=== PATIENT | male | born 1960 ===

== ENCOUNTER 2019-11-05 17:35 | Outpatient (CLI) | payer BC, SELFPAY ==
--- NOTE | ~2019-11-05 | MR_ITS ---
EXAMINATION: MR brain/brain stem wo con DATE: 11/05/2019 18:16 INDICATION: Stroke with bilateral lower limb weakness TECHNIQUE: Magnetic resonance imaging (MRI) of the brain and brainstem was performed without intraven ous contrast. Sequences included sagittal and axial T1-weighted SE, axial diffusion-weighted FS SE, a xial T2*-weighted GRE, axial T2-weighted FLAIR, and axial T2-weighted FSE. Apparent diffusion coeffic ient (ADC) maps were created. COMPARISON: None. FINDINGS: There are no areas of restricted diffusion to suggest acute infarction. No intracranial hemorrhage or abnormal intracranial mass lesion. There are scattered areas of nonspecific increased T2-weighted si gnal intensity in the claudia and cerebral white matter. There are no intraparenchymal signal abnormalit ies seen on the other pulse sequences. The ventricles are symmetric and normal in size. There are no abnormal extra-axial fluid collections. There is a decreased flow void on T2-weighted images in the r ight vertebral artery which could be seen with thrombosis, slow flow or a significant amount of ather osclerotic plaque. Visualized orbits and soft tissues are unremarkable. There are no areas of abnorma l enhancement on the post contrast images. IMPRESSION: 1. Mild scattered nonspecific white matter T2 hyperintensity in the claudia and cerebral white matter li naveen sequela of chronic small vessel ischemic disease. No acute infarct. 2. Decreased flow void at the right vertebral artery which could be seen with thrombosis, slow flow o r a significant amount of atherosclerotic plaque. Reviewed, dictated and finalized at location A. IMPRESSION: 1. Mild scattered nonspecific white matter T2 hyperintensity in the claudia and ce rebral white matter likely sequela of chronic small vessel ischemic disease. No acute infarct. 2. Decreased flow void at the right vertebral artery which could be seen with t hrombosis, slow flow or a significant amount of atherosclerotic plaque.
== END 2019-11-05 17:36 | disposition home or self-care (01) ==
PROVIDERS: PCP Physician Assistant; Visit Provider Psychiatry & Neurology Neurology
DX: I63.9 Cerebral infarction, unspecified (principal); R93.0 Abnormal findings on diagnostic imaging of skull and head, not elsewhere classified
CPT/HCPCS: 70551

== ENCOUNTER 2019-11-26 14:24 | Outpatient (CLI) | payer BC, SELFPAY | END 2019-11-26 14:25 | disposition home or self-care (01) | LOC: ANHAUDIO 14:25 | PROVIDERS: PCP Physician Assistant; Visit Provider Psychiatry & Neurology Neurology | DX: H90.3 Sensorineural hearing loss, bilateral (principal) | CPT/HCPCS: 92557; 92567 ==

== ENCOUNTER 2019-12-06 10:57 | Outpatient (RCR) | payer BC, SELFPAY | END 2019-12-06 23:59 | disposition home or self-care (01) | LOC: ANHAUDIO 10:57 | PROVIDERS: PCP Physician Assistant; Visit Provider Physician Assistant | DX: Z46.1 Encounter for fitting and adjustment of hearing aid (principal) | CPT/HCPCS: V5257 ==

== ENCOUNTER 2019-12-06 14:37 | Outpatient (CLI) | payer BC, SELFPAY ==
--- NOTE | ~2019-12-06 | CT_ITS ---
EXAMINATION: CTA brain carotid DATE: 12/06/2019 15:55 INDICATION: Stroke. TECHNIQUE: Computed tomographic angiography (CTA) of the head was performed without and with 100 mL O mnipaque-350 intravenous contrast. CTA of the neck was performed with intravenous contrast. Automated exposure control and iterative reconstruction technique were employed. The dose-length product was 1 723.83 mGy-cm. Maximum intensity projection and volume rendered 3D-reconstructions were created by e technologist on a separate workstation. COMPARISON: Brain MRI 11/05/2019 FINDINGS: HEAD CTA: There are old infarcts involving inferior right cerebellum and right middle cerebellar pedu ncle. There is no intracranial hemorrhage, acute infarction, or abnormal intracranial mass lesion. Th e ventricles are normal in size. The paranasal sinuses are clear. There is an implant superior to rig ht ocular globe. There is mild mucosal thickening in the paranasal sinuses. The mastoid air cells are normal. 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 There is moderate stenosis of left verte bral artery. There is no significant stenosis of basilar artery or the posterior cerebral arteries. T here is mild stenosis of the intracranial internal carotid arteries. There is a 3 mm saccular aneurys m of supraclinoid right internal carotid artery directed medially. There is no significant stenosis o f the anterior cerebral arteries. There is mild stenosis of the middle cerebral arteries. Anterior co mmunicating artery is normal. The posterior communicating arteries are normal. NECK CTA: There is mild emphysema. There are no pathologically enlarged lymph nodes. Right vertebral artery is small in caliber. There is total occlusion of right vertebral artery superior to C2. There is mild plaque in the proximal internal carotid arteries. There is 0% stenosis of the proximal right internal carotid artery relative to normal distal artery lumen diameter (NASCET criteria). There is 0 % stenosis of the proximal left internal carotid artery relative to normal distal artery lumen diamet er. There is severe spondylosis at C5-C6. IMPRESSION: 1. Old infarcts involving inferior right cerebellum and right middle cerebellar peduncle. 2. 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 3. 0% stenosis of the proximal internal carotid arteries relative to normal distal artery lumen diame ters (NASCET criteria). 4. 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 Reviewed, dictated and finalized at location A. IMPRESSION: 1. Old infarcts involving inferior right cerebellum and right middle cerebellar peduncle. 2. 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 3. 0% stenosis of the proximal internal carotid arteries relative to normal dis sebastián artery lumen diameters (NASCET criteria). 4. 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
[2019-12-06 15:52] LABS: Estimated Glomerular Filt Rate > 60
== END 2019-12-06 14:38 | disposition home or self-care (01) ==
LOC: ANHIMG 14:38
PROVIDERS: PCP Physician Assistant; Visit Provider Psychiatry & Neurology Neurology
DX: I63.9 Cerebral infarction, unspecified (principal)
CPT/HCPCS: 36415; 70496; 70498; Q9967

== ENCOUNTER 2020-01-08 09:30 | Outpatient (RCR) | payer BC, SELFPAY ==
--- NOTE | 2019-10-11 10:19 | PTOPEVAL ---
PHYSICAL THERAPY EVALUATION AND PLAN OF CARE 10-11-2019 The PT evaluation was completed for the diagnosis of TIA. His plan of treatment is scheduled for 2-3 x/week for 4 weeks. Thank you for referring Suhail Goodrich to [facility]. Please review, sign, date and return this plan of care [facility]. I agree with and certify that the following plan of care is medically necessary. Referring Physician Date Attending Provider: Stephen Ghosh PA-C *PT Outpatient Evaluation Start: 10/11/19 08:59 Document 10/11/19 08:59 MARTHA (Rec: 10/11/19 10:19 MARTHA [id number]) Outpatient Past Medical History Past Medical History Source of Past Medical History Patient,Family/Significant Other Neurological History Hx Cerebrovascular Accident (CVA) Yes: this CVA Cardiovascular History Hx Hypertension Yes: meds control Respiratory History Hx Respiratory Disorders No Significant History Gastrointestinal History Hx Gastrointestinal Disorders No Significant History Genitourinary History Hx Genitourinary Disorders No Significant History Musculoskeletal History Hx Other Musculoskeletal Disorders Yes: L Charcot foot, with wound-to see ortho @ [facility]/ brace Endocrine History Hx Diabetes Yes: med control HEENT History 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,deaf R ear-new onset Evaluation Information Problem Diagnosis s/p TIA Onset 08-23-19 Subjective Information pt lived in [place]; was in Query Text:As Reported By Patient/ Rehab, came to live with Family sister Petra September 19; staying with Petra until stronger, then hope to go to [place] to live with daughter or his friend; Previous Treatments Previous Treatments For This Problem in pt hospital and rehab Prior Level of Function Activity Level (Last 3 Months) Occupation prior to CVA delivered parts for [employer] Hand Dominance Left Home Setting Home Type House Environmental Barriers Railing, None,Stairs, 2-4 Living Situation With Relatives Support Available Local Family Support Mobility Assistive Devices (Used Last 3 Wheelchair, Manual Months) Orthotic/Prosthetic Devices Left Lower Extremity Orthosis Bathing Equipment Grab Bars,Tub Seat With Back, Tub Transfer Bench Comments Additional Prior Level of Function bath and dress indep with Comments equipment; use wheel chair for mobility;
--- NOTE | 2019-11-08 11:55 | PTOPEVAL ---
PHYSICAL THERAPY RE-EVALUATION AND UPDATED PLAN OF CARE 11-08-2019 Josh has received 11 PT sessions, from October 10 to today, for the diagnosis of cerebral infarct. He has improved in all areas: ambulation ability and distance, Tinetti balance score, R and L LE strength, ability on stairs, car transfer, floor/mat transfer and increased reported activity level at home. He has been instructed on a home exercise program. He is living with his sister, Petra, but wants to return to independent living as soon as he is safe with his mobility. He is using the wheel chair for distances and in the home using wheeled walker and wheel chair. PT to continue 2-3x/week for 4 weeks, to continue to increase his mobility skills, standing balance and strength. Thank you for referring Suhail Goodrich to [facility]. Please review, sign, date and return this plan of care [facility]. I agree with and certify that the following plan of care is medically necessary. Referring Physician Date Attending Provider: Stephen Ghosh PA-C *PT Outpatient Re-Evaluation Document 11/08/19 11:00 MARTHA (Rec: 11/08/19 11:47 MARTHA [id number]) Evaluation Information Problem Subjective Information Josh reports: doing better, Query Text:As Reported By Patient/ legs are still weak, walking Family more; at home, using wheelchair and wheeled walker- sister walk behind for safety , able to do laundry and light home things, doing self care without assist of sister; still live with sister and she continues to do cooking; to have eye surgery next week; is not driving; plans to go to [place] to live by himself; has not had any falls. Pain Assessment Timing of Pain Assessment Timing of Pain Assessment Assessment Self Report Self Report Pain Level 0 Pain Score Pain Score 0: Self Report Lower Extremity Muscle Strength Testing General Lower Extremity Strength Gross Lower Extremity Strength 3# ankle wt: supine SLR R 29/L 23 reps; side lying hip abduction R 10/L 20 reps; prone hip extension R 20/ L 20 reps -sit<> stand use of B UE; standing: R/L sh flexion 5 reps, able to maintain standing balance; cannot take steps without UE support; Transfer Assessment Bed Transfer Assessment Ambulation Assistive Devices Walker, Wheeled Sit to Stand Bed Transfer Ability Independent Stand to Sit Bed Transfer Ability Independent Ability to Transfer To/From the Bed Independent Cues Needed for Bed Transfer None Bed Transfer Comments use of B UE; Car Trans
--- NOTE | 2019-12-06 11:00 | PTOPEVAL ---
Addendum entered by Lona Clifford, PT 12/06/19 13:29: To continue PT treatments 2x/week for 4 weeks. Original Note: PHYSICAL THERAPY RE-EVALUATION AND UPDATED PLAN OF CARE 12-06-2019 Josh has received 21 PT sessions, from October 10 to today. Compared to the last reevaluation: Josh has improved in all areas: strength of LE's; sit/stand transfer, floor/sit transfer, walking tolerance, Tinetti balance score, stair ability. He continues to use the wheelchair for his mobility, and walking short distances in his home with sister near by. He is motivated and his goal is to go to [place] and live with his friend there, and to be as independent as possible. Thank you for referring Suhail Goodrich to [facility]. Please review, sign, date and return this plan of care [facility]. I agree with and certify that the following plan of care is medically necessary. Referring Physician Date Attending Provider: Stephen Ghosh PA-C Document 12/06/19 10:08 MARTHA (Rec: 12/06/19 11:00 MARTHA [id number]) Therapy Assessment Status Assessment Status Subjective Information Josh reports: is doing more Query Text:As Reported By Patient/ walking at home; due to eye Family surgery, vision is blurry in R eye; has not had any falls; in the house, is using the wheelchair about 90% time in house; is doing home exercises; wants to continue therapy- to be able to walk better and not need help. Pain Assessment Timing of Pain Assessment Timing of Pain Assessment Assessment Self Report Self Report Pain Level 0 Pain Score Pain Score 0: Self Report Lower Extremity Muscle Strength Testing General Lower Extremity Strength Gross Lower Extremity Strength sit/stand 10 reps with L UE use only; standin# ankle wt: R and L with B UE hold: hip flex, abduction and extension and knee flexion, 30 to 40 reps each; Transfer Assessment Floor Transfer Assessment Ambulation Assistive Devices None Orthotic/Prosthetic Devices Left Lower Extremity Orthosis Sit to Floor Transfer Ability Independent Floor to Sit Transfer Ability Independent Cues Needed for Floor Transfer None Floor Transfer Comments use of UE on mat to perform transfer Balance Assessment Tinetti Balance Assessment Sitting Balance Steady, safe Ability to Arise Able, uses arms to help Attempts to Arise Arises on 1st attempt Immediate Standing Balance Steady with support Standing Balance Steady, wide stance Nudged Response Steady Stand
--- NOTE | 2020-01-03 15:21 | PTOPEVAL ---
PHYSICAL THERAPY REEVALUATION AND UPDATED PLAN OF CARE 01-03-2020 Josh has received 28 PT sessions, from October 10 to today, s/p CVA. He remains motivated and works hard during therapy sessions. Compared to the last reevaluation: 6 minute walking test is slightly less distance; Tinetti balance score is the same; he has not had any falls; at home, reports using the wheel chair for ~ 25% of the day, previously was 90% day use; During therapy, he is using the nickie cane for walking, with slower pace of gait. He has one at home, but is not comfortable using it without someone with him. He continues to live with his sister; Josh has increased his in home walking and activity--doing laundry, going out to the back porch and light home tasks. He plans to go to [facility] on Mar 20, to live with his friend. Josh reports frustration with his mobility and is limited due to his R eye issues, which causes him blurry vision and L walking boot for Charcot foot. He sees both eye dr and ortho dr Jan 15. He does not have his hearing aide and he is pleased with it. PT is to continue 2x/week for 4 weeks, to further increase his mobility and dynamic balance. Thank you for referring Suhail Goodrich to [facility]. Please review, sign, date and return this updated plan of care [facility]. I agree with and certify that the following plan of care is medically necessary. Referring Physician Date Attending Provider: Stephen Ghosh PA-C *PT Outpatient Re-Evaluation Document 01/03/20 14:43 MARTHA (Rec: 01/03/20 15:19 MARTHA [id number]) Evaluation Information Problem Subjective Information Josh reports: at home is Query Text:As Reported By Patient/ using the wheelchair for Family mobility 25% day in home- mostly at night and first thing in morning and when in community is using wheelchair; has not had any falls; has a nickie cane at home, but is not comfortable with it to walk alone; no falls; still lving with his sister- she does shopping, driving and meals for him; his R eye is blurry and has appointment 8- [address] and L ankle dr; is doing his home exercises and wants to continue PT to be able to walk more and get stronger; Pain Assessment Timing of Pain Assessment Timing of Pain Assessment Assessment Self Report Self Report Pain Level 0 Pain Score Pain Score 0: Self Report Lower Extremity Range of Motion General Lower Extremity Range of Motion Gross Lower Extremity Range of Motion sit to stand from w/c with 1 Comments UE use/ stand to sit without use of UE's with plop into
--- NOTE | 2020-01-10 10:40 | PCPTNOTE ---
This treatment is being continued on visit number [id number]. Please see documentation on both accounts to view progress. Completed interventions, outcomes, and problems have been marked as Inactive to facilitate the copying of the Care plan routine for recurring accounts.
== END 2020-01-09 23:59 | disposition home or self-care (01) ==
LOC: ANHPT 09:30
PROVIDERS: PCP Physician Assistant; Visit Provider Physician Assistant
DX: Z86.73 Personal history of transient ischemic attack (TIA), and cerebral infarction without residual deficits (principal)
CPT/HCPCS: 97110; 97116; 97162

== ENCOUNTER 2020-01-15 13:30 | Outpatient (RCR) | payer BC, SELFPAY ==
--- NOTE | 2020-01-10 10:42 | PCPTNOTE ---
This treatment is being continued from [id number]. Please see documentation on both accounts to view progress.
--- NOTE | 2020-01-17 16:31 | PCPTNOTE ---
pt called and canceled all of his remaining appts, left message stating foot dr wants him to stay off his LE; I called pt and left a message for him.
--- NOTE | 2020-01-24 15:16 | PCPTNOTE ---
PHYSICAL THERAPY DISCHARGE 01-24-2020 Attending Provider: Stephen Ghosh PA-C Patient:Suhail Goodrich Date of :1960 Mr. Goodrich called on 01-16-2020 and stated he saw the foot dr and was told to not to WB on L LE, due to L foot wound, and he will be doing to a wound care nurse. Therefore he will be discharged at this time. Discussed with him to continue LE exercises in supine and sitting, and to continue to stand on R LE- to maintain his strength. He had received a total of 31 PT sessions. Refer to the last reevaluation report on 01-03-2020 for his activity level and functional abilities. Thank you for referring Suhail to [facility]. Please review, sign, date and return this discharge summary [facility]. I have been updated about the patient's current status and I agree with discharge from the above service at this time. Referring Physician Date
== END 2020-01-27 15:07 | disposition home or self-care (01) ==
LOC: ANHPT 13:30
PROVIDERS: PCP Physician Assistant; Visit Provider Physician Assistant
DX: Z86.73 Personal history of transient ischemic attack (TIA), and cerebral infarction without residual deficits (principal)
CPT/HCPCS: 97110; 97116

== ENCOUNTER 2020-06-22 09:00 | Outpatient (RCR) | payer BC, SELFPAY ==
--- NOTE | 2020-05-27 11:09 | STOPEVAL ---
SPEECH THERAPY INITIAL EVALUATION: Thank you for referring Suhail Goodrich to [facility].? The patient is scheduled to be seen for therapy? 2x/week for 4 weeks. Please review, sign, date and return this plan of care [facility]. I agree with and certify that the following plan of care is medically necessary. Referring Physician Date Attending Provider: Stephen Ghosh PA-C *ST Outpatient Evaluation Start: 05/26/20 08:22 Freq: Status: Active Protocol: Document 05/26/20 08:00 CELSA (Rec: 05/26/20 08:53 BECELLISRT [email or web address]) Therapy Assessment Status Assessment Status Assessment Status Evaluation Outpatient Past Medical History Neurological History Hx Cerebrovascular Accident (CVA) Yes: CVA Cardiovascular History Hx Hypertension Yes: meds control Respiratory History Hx Respiratory Disorders No Significant History Gastrointestinal History Hx Gastrointestinal Disorders No Significant History Genitourinary History Hx Genitourinary Disorders No Significant History Musculoskeletal History Hx Other Musculoskeletal Disorders Yes: L Charcot foot, with wound-to see ortho @ [facility]/ brace Endocrine History Hx Diabetes Yes: med control HEENT History 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 Subjective Information Very pleasant; good historian Query Text:As Reported By Patient/ Family Previous Treatments Previous Treatments For This Problem Pt reported that he had ST during his rehab after the CVA in [place]. Prior Level of Function Home Setting Home Type House Living Situation With Relatives [place] Responsibilities Comment Lives with his sister; reports that he can do everything himself but the kitchen isn't handicap accessible so it's difficult to cook. pt cannot drive anymore; sister provides transportation and food prep. He believes that if he was in a handicap accessible home he could be independent. Cognition/m
--- NOTE | 2020-06-11 15:21 | PCSTNOTE ---
Patient called & cancelled scheduled appointment this date due to being admitted to hospital r/t renal issues.
--- NOTE | 2020-06-22 14:33 | PCSTNOTE ---
Speech Therapy Discharge: Patient:Suhail Goodrich Date of :1960 Thank you for referring Suhail Goodrich to [facility] Patient?s initial visit was on 05/26/2020 08:00 and he had a total of 9 visits. Refer to the reassessment outcomes described below; the goals have not been met and discharge is recommended at this time. Thank you for referring this patient to [facility]. Please review, sign, date and return this discharge summary [facility]QUEL. I have been updated about the patient's current status and I agree with discharge from the above service at this time. Referring Physician Date Attending Provider: GARRET Ortega Outpatient Discharge: Start: 05/26/20 08:22 Freq: Status: Active Protocol: Document 06/22/20 09:00 BECELLISRT (Rec: 06/22/20 10:07 BECHERERT [email or web address]) Therapy Assessment Status Assessment Status Assessment Status Discharge Outpatient Past Medical History Neurological History Hx Cerebrovascular Accident (CVA) Yes: CVA Cardiovascular History Hx Hypertension Yes: meds control Respiratory History Hx Respiratory Disorders No Significant History Gastrointestinal History Hx Gastrointestinal Disorders No Significant History Genitourinary History Hx Genitourinary Disorders No Significant History Musculoskeletal History Hx Other Musculoskeletal Disorders Yes: L Charcot foot, with wound-to see ortho @ [facility]/ brace Endocrine History Hx Diabetes Yes: med control HEENT History 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,deaf R ear-new onset Pain Assessment Timing of Pain Assessment Timing of Pain Assessment Assessment Self Report Self Report Pain Level 0 Pain Score Pain Score 0: Self Report Dysarthria Evaluation Oral-Motor Assessment Lip Structure Asymmetrical Lip Moisture Dry Lip Protrusion Range Reduced,Rate Slow, Strength Reduced Lip Lateralization Range Reduced,Rate Slow, Strength Reduced Lip Compression Strength Reduced Lip Tone Reduced Right Lip Sensation Reduced Right Orthodontic/Dental Appliances Full Dentures, Lower,Full Dentures, Upper Teeth Condition Endentulous Mouth Occlusion Normal Tongue Protrusion Range WNL,Rate Slow Tongue Tip Elevation Rate WNL,Strength WNL,Rate Slow Tongue Circular Range of Motion Range WNL,Strength WNL,Rate Slow Tongue Tone Reduced Right Tongue Sensation Reduced Right Tip Diodochokinesis
== END 2020-06-23 10:29 | disposition home or self-care (01) ==
LOC: ANHST 09:00
PROVIDERS: PCP Physician Assistant; Visit Provider Physician Assistant
DX: I63.89 Other cerebral infarction (principal); R47.1 Dysarthria and anarthria
CPT/HCPCS: 92522; 92526; 92610